=== PATIENT | male | born 2000 | race Caucasian/White ===

== ENCOUNTER 2018-11-23 23:40 | Emergency (ER) | payer OTHER ==
[2018-11-24] MEDS ORDERED: LIDOCAINE 1% INJ-PF (10 MG/ML) 30 ML SDV INJ ONE (03:12)
[2018-11-24] MEDS ORDERED: AMOXICILLIN TR/POT CLAVULANATE 500-125 MG TAB PO ONE (03:23)
--- NOTE | 2018-11-24 03:27 | ER Document Report ---
ED General - General Chief Complaint: Dog Bite Stated Complaint: DOG BITE Time Seen by Provider: 11/24/18 02:55 Notes: Patient is a 17-year-old male [id number] presents with a laceration over his right middle finger after being bit by a friend's dog. States that he is watching a friend's dogs, dog started fighting so they got involved to break up the fight and he sustained this laceration. Describes a dull, throbbing, constant pain to the finger since the bite. Nothing improves or worsens the pain. Denies injury to any other location. Able to range the finger by his report. Dogs are immunized fully per the patient. TRAVEL OUTSIDE OF THE [place] IN LAST 30 DAYS: No Past Medical History - General Information source: Patient - Social History Smoking Status: Never Smoker Frequency of alcohol use: None Drug Abuse: None Lives with: Friend Family History: Reviewed & Not Pertinent Review of Systems - Review of Systems Notes: Constitutional: Negative for fever. Eyes: Negative for visual changes. ENT: Negative for facial injury Cardiovascular: Negative for chest injury. Respiratory: Negative for shortness of breath. Gastrointestinal: Negative for abdominal injury. Genitourinary: Negative for genital injury Musculoskeletal: Positive for right hand injury Skin: Positive for laceration/abrasions. Neurological: Negative for head injury. Physical Exam - Vital signs Vitals: Temp Pulse Resp BP Pulse Ox 98.1 F 98 H 18 127/71 H 98 11/23/18 23:59 11/23/18 23:59 11/23/18 23:59 11/23/18 23:59 11/23/18 23:59 Interpretation: Normal Notes: PHYSICAL EXAMINATION: GENERAL: Well-appearing, well-nourished and in no acute distress. HEAD: Atraumatic, normocephalic. EYES: sclera anicteric, conjunctiva are normal. ENT: Moist mucous membranes. NECK: Normal range of motion LUNGS: Normal work of breathing HEART: 2+ radial pulses bilaterally, capillary refill less than 1 second in all digits of the right hand EXTREMITIES: no pitting or edema. No cyanosis. Full flexion and extension at the DIP, PIP and MCP of all digits the right hand including against resistance NEUROLOGICAL: No focal neurological deficits. Moves all extremities spontaneously and on command. PSYCH: Normal mood, normal affect. SKIN: Warm, Dry, normal turgor, 2 cm contused flap type laceration over the volar surface of the right middle finger at the level of the PIP Course - Re-evaluation Re-evalutation: 11/24/18 03:25 Patient presents with a flap type laceration over the volar surface of the mid right middle finger effectively at the level of the PIP. Full flexion and extension at all levels of the finger including MCP, DIP and PIP. Capillary refill less than 1 second in all digits. No additional injuries. [id number]. The wound is gaping and I would generally not want to provide any stitching to a dog bite on the hand in particular. However that given the degree of opening of the wound a 2 stitches were applied to loosely approximate the gaping wound after copious irrigation. Tetanus is already up-to-date and dog's immunizations are likewise up-to-date. Augmentin prophylaxis will be provided. At this time will discharge with return precautions and follow-up recommendations. Verbal discharge instructions given a the bedside and opportunity for questions given. Medication warnings reviewed. Patient is in agreement with this plan and has verbalized understanding of return precautions and the need for primary care follow-up in the next 24-72 hours. 11/24/18 04:11 - Vital Signs Vital signs: Temp Pulse Resp BP Pulse Ox 98.1 F 98 H 18 127/71 H 98 11/23/18 23:59 11/23/18 23:59 11/23/18 23:59 11/23/18 23:59 11/23/18 23:59 Procedures - Laceration/Wound Repair Right 3rd digit Wound length (cm): 2 Wound's Depth, Shape: Flap, Contused tissue Laceration pre-procedure: Sterile PPE donned Anesthetic type: 1% Lidocaine w/epi Volume Anesthetic (mLs): 2 Wound explored: Contaminated Irrigated w/ Saline (mLs): 1,000 Wound Debrided: Moderate Wound Repaired With: Sutures Suture Size/Type: 5:0, Ethilon Number of Sutures: 1 Layer Closure?: No Post-procedure wound care: Sterile dressing applied Post-procedure NV exam normal: Yes Complications: No Discharge - Discharge Clinical Impression: Dog bite Qualifiers: Encounter type: initial encounter Qualified Code(s): W54.0XXA - Bitten by dog, initial encounter Laceration of right middle finger Qualifiers: Encounter type: initial encounter Damage to nail status: without damage Foreign body presence: without foreign body Qualified Code(s): S61.212A - Laceration without foreign body of right middle finger without damage to nail, initial encounter Condition: Good Disposition: HOME, SELF-CARE Additional Instructions: Please monitor very closely for any signs of infection from your dog bite including spreading redness from the area, pus from the wound, or worsening pain. Clean the area twice daily with soap and water and then apply topical antibiotic ointment. Please take all the antibiotics that you were prescribed until they are gone. Follow-up with your primary care physician as needed. Please return to your primary doctor, the ED, or an urgent care in 7 days for suture removal. Return immediately if you develop spreading redness around the wound, pus from the wound, worsening pain, or a fever of >100.4. Keep the area clean and dry. Wash gently with soap and water twice daily and cover with antibiotic ointment. Prescriptions: Amox Tr/Potassium Clavulanate [Augmentin 875-125 Tablet] 1 tab PO BID 5 Days tablet
[2018-11-24 04:42] VITALS: BP 131/89
== END 2018-11-24 04:40 | disposition home or self-care (01) ==
LOC: ER 23:40
PROC: 0HQFXZZ Repair Right Hand Skin, External Approach (ICD-10-PCS; principal; 2018-11-23)
DX: S61.212A Laceration without foreign body of right middle finger without damage to nail, initial encounter (principal); W54.0XXA Bitten by dog, initial encounter
CPT/HCPCS: 99283; 12001; J3490